=== PATIENT | male | born 1990 | race Caucasian/White ===

== ENCOUNTER → 2017-12-22 | Outpatient (CLI) | payer OTHER ==
--- NOTE | 2017-12-22 16:48 | CONS ---
CONSULTATION REASON FOR CONSULTATION: This is a consultation note for sleep apnea. PRIMARY CARE PHYSICIAN: Dr. 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 Afternoon shift between 3:30 pm and 11:00 pm. He goes to bed around midnight and he wakes up 10 o'clock in the morning. He snores. He was been told to stop breathing. He lives with his brother and he has been noted to stop breathing on multiple occasions. His aunt has obstructive sleep apnea and she has noted his breathing patterns during sleep and the patient was referred to me for sleep apnea evaluation especially that he is having excessive fatigue and tiredness and sleepiness during the day. No falling asleep while driving. Winsted score is at 5. Weight stays stable. He is excessively tired and sleepy during the day. No history of alcohol. No history of substance abuse. He has undergone tonsillectomy in the past. He has history of depression, maintained on Prozac. No other comorbidities otherwise. PAST MEDICAL HISTORY: Obesity and depression. PAST SURGICAL HISTORY: Tonsillectomy. DRUG ALLERGIES: Not known. OUTPATIENT MEDICATIONS: Prozac. SOCIAL HISTORY: He is a nonsmoker. No history of alcohol. No history of IV drugs. He does not drink coffee other than 2 cups a day. No history of any alcohol or illicit substance abuse. No history of intake of caffeinated beverages or any other energy drinks. FAMILY HISTORY: Aunt has obstructive sleep apnea. REVIEW OF SYSTEMS: 12-point review of system was done. Positive findings are mentioned in history of present illness. No sleepwalking or sleep talking. No cataplexy. No sleep paralysis. No hallucinations. No active anxiety. No palpitations. No anxiety. No panic attacks. No heartburn during sleep. No restlessness in lower extremities. No sleep talking. He has been told to wake up gasping for air. Although he himself has not noted that. PHYSICAL EXAMINATION: BP is 145/79, pulse 79, respirations 16, temperature 16, temp 97.7, weight is 259, height is 5 feet 8 inches, Winsted score is 5. BMI 39.3. Neck size 17-3/4 of an inch. Saturation 97% on room air. BP is 145/79. General appearance: Calm, comfortable. Head is atraumatic, normocephalic. Neck Mallampati class IV. There is no goiter or neck masses. LUNGS: Clear to auscultation. HEART: Sounds regular rate and rhythm. Normal S1, S2. No S3. No S4, no murmurs. ABDOMEN: Soft, nontender. EXTREMITIES: No edema. No cyanosis or clubbing. NEUROLOGIC: Alert and oriented x3. No focal neurological deficits. PSYCHIATRIC: Negative for anxiety or depression. IMPRESSION: 1. Excessive hypersomnia and sleepiness with symptoms of snoring and witnessed apneas. Rule out underlying obstructive sleep apnea. 2. Obese with a BMI of 39.3. 3. Previous tonsillectomy. 4. History of depression. PLAN: 1. Encourage weight loss. 2. Proceed with a screening polysomnogram looking for any significant obstructive sleep apnea. There is a high suspicion that the patient may have an underlying sleep breathing disorder. TAB / DALTONN: [id number] /
== END | disposition home or self-care (01) ==
LOC: SLEEP 14:04
PROVIDERS: ATTEND Internal Medicine Critical Care Medicine
DX: G47.10 Hypersomnia, unspecified (principal); R06.83 Snoring; R53.83 Other fatigue; F32.9 Major depressive disorder, single episode, unspecified; E66.9 Obesity, unspecified; Z68.39 Body mass index [BMI] 39.0-39.9, adult; Z79.899 Other long term (current) drug therapy; Z83.6 Family history of other diseases of the respiratory system; Z90.89 Acquired absence of other organs
CPT/HCPCS: 99211

== ENCOUNTER → 2018-06-01 | Outpatient (CLI) | payer OTHER ==
--- NOTE | 2018-06-01 17:12 | PN ---
PROGRESS NOTE Hari is a 27, coming to see me for a compliance check. The patient was diagnosed having mild obstructive sleep apnea and currently is on CPAP. In APAP mode minimum of 5, maximum of 20. He has a mild THOMAS with an AHI of 11.4, worse during REM. He is benefitting considerably while on CPAP. He is able to work, being much more alert and awake and does not have to fall asleep while working or performing routine day-to-day activities. He has been very compliant with CPAP. He is wearing every night. He is averaging 6.8 hours and his leak factor is 12 L/minute. The average pressure is around 10.6 while on APAP therapy and his AHI is down to 1.5. Weight is up by around 4-5 pounds. No snoring and his snoring has completely subside as the patient is using AirFit F20 medium-sized full-face mask. REVIEW OF SYSTEMS: 12-point review of system was done. Positive findings are mentioned in history of present illness. PHYSICAL EXAMINATION: VITAL SIGNS: His current vitals, pressure is 149/76, pulse 78, respirations 16, temperature 98.1, weight is 264. Saturation 97% on room air. Wayne score is at 3. GENERAL APPEARANCE: Calm and comfortable. Head is atraumatic, normocephalic. Neck is short and supple. Crowding of posterior pharynx. No goiter or neck masses. Lungs diminished, otherwise clear. HEART: Sounds regular rate and rhythm. Normal S1, S2. No S3. No murmurs. ABDOMEN: Soft, nontender. No organomegaly. EXTREMITIES: No edema. No cyanosis or clubbing. NEUROLOGIC: Alert and oriented x3. No focal neurological deficits. PSYCHIATRY: Negative for anxiety or depression. IMPRESSION: 1. Obstructive sleep apnea, mild AHI of 11.4, continues to be successfully treated with APAP. 2. Hypersomnia, recovered. 3. Obesity with a BMI of 39.7. 4. Previous tonsillectomy. 5. History of depression. PLAN: 1. Continue APAP. Same pressure. 2. Continue the same mask which is an AirFit F20 full face mask. 3. Encourage weight loss. 4. Implement good sleep hygiene measures. 5. We will continue to follow. MMODL / IJN: [id number] /
== END | disposition home or self-care (01) ==
LOC: SLEEP 15:40
PROVIDERS: ATTEND Internal Medicine Critical Care Medicine
DX: G47.33 Obstructive sleep apnea (adult) (pediatric) (principal); E66.9 Obesity, unspecified; F32.9 Major depressive disorder, single episode, unspecified; Z68.39 Body mass index [BMI] 39.0-39.9, adult; Z90.89 Acquired absence of other organs; Z99.89 Dependence on other enabling machines and devices

== ENCOUNTER → 2019-12-08 | Outpatient (CLI) | payer OTHER ==
[2019-12-08 10:17] LABS: Basophils # (A) 0.1 k/uL (0-0.2); Basophils % (A) 1 %; Eosinophils # (A) 0.2 k/uL (0-0.7); Eosinophils % (A) 3 %; HCT 46.4 % (39.0-53.0); HGB 14.3 gm/dL (13.0-17.5); Hypochromasia Slight; Lymphocytes # (A) 2.3 k/uL (1.0-4.8); Lymphocytes % (A) 27 %; MCH 25.7 pg (25.0-35.0); MCHC 30.9 g/dL (31.0-37.0); Mean Platelet Volume 7.6; Monocytes # (A) 0.4 k/uL (0-1.0); Monocytes % (A) 5 %; Neutrophils # (A) 5.6 k/uL (1.3-7.7); Neutrophils % (A) 64 %; Platelet Count 318 k/uL (150-450); RBC 5.59 m/uL (4.30-5.90); RDW 13.5 % (11.5-15.5); WBC 8.7 k/uL (3.8-10.6)
[2019-12-08 10:48] LABS: Appearance,Urine Clear (Clear); Bilirubin,Urine Negative (Negative); Blood,Urine Negative (Negative); Color,Urine Yellow; Glucose,Urine (UA) Negative (Negative); Ketones,Urine Negative (Negative); Leukocyte Esterase,Urine Negative (Negative); Nitrite,Urine Negative (Negative); PH, Urine 5.5 (5.0-8.0); Protein,Urine Negative (Negative); Specific Gravity,Urine 1.026 (1.001-1.035); Urobilinogen,Urine <2.0 mg/dL (<2.0)
[2019-12-08 17:41] LABS: Folate, Serum 5.7 ng/mL
[2019-12-08 17:51] LABS: African American GFR (CKD) 141.9 (60.0-200.0); Albumin 4.7 g/dL (3.80-4.90); Albumin/Globulin Ratio 2.14 (1.60-3.17); Anion Gap 10.6 mmol/L (4.00-12.00); BUN/Creat Ratio 16.25 Ratio (12.00-20.00); Calcium 9.5 mg/dL (8.7-10.3); Carbon Dioxide 23.4 mmol/L (21.6-31.8); Chol/HDL Ratio 4.04; Globulin 2.2 g/dL (1.6-3.3); LDL Cholesterol,Calculated 121.8 mg/dL (0.0-131.0); Magnesium 2.1 mg/dL (1.5-2.4); Non-African American GFR(CKD) 122.4 (60.0-200.0); Potassium 3.9 mmol/L (3.5-5.5); Total Bilirubin 0.5 mg/dL (0.3-1.2); Total Protein 6.9 g/dL (6.2-8.2); VLDL Calculation 21.2 mg/dL (5.00-40.00)
[2019-12-08 19:51] LABS: Hemoglobin A1C 5.3 % (4.0-6.0)
== END | disposition home or self-care (01) ==
LOC: LABWHC1 09:50
PROVIDERS: ATTEND Family Medicine
DX: R35.8 Other polyuria (principal); R63.1 Polydipsia; R63.2 Polyphagia; E66.9 Obesity, unspecified; R53.83 Other fatigue; R20.0 Anesthesia of skin
CPT/HCPCS: 36415; 80053; 80061; 81003; 82306; 82607; 82746; 83036; 83615; 83735; 84403; 84443; 85025

== ENCOUNTER → 2021-12-17 | Outpatient (CLI) | payer OTHER ==
[2021-12-18 11:07] LABS: HCV Qualitative Result Not detected (Not detected); HCV Quant Log <1.08 (<1.08); HCV Quantitative Result <12 IU/mL (<12)
== END | disposition home or self-care (01) ==
LOC: LABWHC1 16:13
PROVIDERS: ATTEND Nurse Practitioner Family
DX: Z11.59 Encounter for screening for other viral diseases (principal)
CPT/HCPCS: 36415; 87522